=== PATIENT | female | born 1935 | race Two or more races ===

== ENCOUNTER 2022-03-15 09:13 | Emergency (ER) | payer MEDICARE, MEDICAID ==
[~2022-03-15] VITALS: Ht 147.3 cm; Wt 73.1 kg
[2022-03-15 10:09] LABS: Basophils # (auto) 0.1 10 ^3/uL (0-0.2); Basophils % (auto) 0.7 % (0.0-2.0); Eosinophils # (auto) 0.2 10 ^3/uL (0-0.8); Hematocrit 43.8 % (36.0-46.0); Hemoglobin 14.8 g/dL (12.2-16.2); Lymphocytes # (auto) 2.2 10 ^3/uL (0.4-5.4); Lymphocytes % (auto) 25.4 % (10.0-50.0); Mean Corpuscular Hemoglobin 29.6 pg (28.0-32.0); Mean Corpuscular Hgb Conc. 33.8 g/dL (32.0-36.0); Mean Corpuscular Volume 87.7 fL (80.0-100.0); Monocytes # (auto) 0.5 10 ^3/uL (0-1.3); Neutrophils # (auto) 5.6 10 ^3/uL (1.6-8.6); Neutrophils % (auto) 65.9 % (37.0-80.0); Nucleated Red Blood Cells % 0.1 %; Red Cell Distribution Width 13.4 % (11.8-14.3); White Blood Cell 8.5 10^3/uL (4.4-10.8)
[2022-03-15 10:29] LABS: Albumin 3.8 g/dL (3.4-5.0); Calcium 8.4 mg/dL (8.5-10.1); Potassium 3.1 mmol/L (3.5-5.1)
[2022-03-15 10:32] LABS: BUN/Creatinine Ratio 13.5; Bilirubin, Total 0.7 mg/dL (0.2-1.0); Total Protein 7.2 g/dL (6.4-8.2)
[2022-03-15] MEDS ORDERED: MAGNESIUM SULFATE 1GM/100ML 100 ML IV ONE (13:15)
[2022-03-15] MEDS ORDERED: POTASSIUM EFFERVESENT TAB 25 MEQ PO ONE (13:15)
[2022-03-15 13:24] VITALS: BP 165/74
== END 2022-03-15 14:15 | disposition left against medical advice (07) ==
LOC: ER 09:13
DX: E83.42 Hypomagnesemia (principal); E87.6 Hypokalemia; Z90.49 Acquired absence of other specified parts of digestive tract
CPT/HCPCS: 36415; 80053; 82962; 83735; 84484; 85025; 93005

== ENCOUNTER 2023-01-01 13:01 | Inpatient (IN) | payer MEDICARE, MEDICAID ==
[~2023-01-01] VITALS: Ht 144.8 cm; Wt 73.4 kg
[2023-01-01] VITALS (8 sets, daily range): BP systolic 147–154; BP diastolic 54–76; PULSE 59–66; RESP 16–22; TEMP 97.5–97.9; O2SAT 94–97
[2023-01-01 13:59] LABS: Basophils # (auto) 0.1 10 ^3/uL (0-0.2); Eosinophils # (auto) 0 10 ^3/uL (0-0.8); Hemoglobin 11.4 g/dL (12.2-16.2); Mean Corpuscular Hemoglobin 28.3 pg (28.0-32.0); White Blood Cell 9.4 10^3/uL (4.4-10.8)
[2023-01-01 14:02] LABS: Basophils % (auto) 0.6 % (0.0-2.0); Eosinophils % (auto) 0.2 % (0.0-7.0); Hematocrit 35.4 % (36.0-46.0); Lymphocytes # (auto) 0.8 10 ^3/uL (0.4-5.4); Lymphocytes % (auto) 8.7 % (10.0-50.0); Mean Corpuscular Hgb Conc. 32.3 g/dL (32.0-36.0); Mean Corpuscular Volume 87.7 fL (80.0-100.0); Monocytes # (auto) 0.6 10 ^3/uL (0-1.3); Monocytes % (auto) 6.1 % (0.0-12.0); Neutrophils # (auto) 7.9 10 ^3/uL (1.6-8.6); Neutrophils % (auto) 84.4 % (37.0-80.0); Nucleated Red Blood Cells % 0.1 %; Red Blood Cells 4.04 10^6/uL (4.0-5.20); Red Cell Distribution Width 15.9 % (11.8-14.3)
[2023-01-01 14:11] LABS: INR 1.56 (0.9-1.15); Partial Thromboplastin Time 44.5 SEC (24.5-34.5); Prothrombin Time 15.9 sec (9.3-11.8)
[2023-01-01] MEDS ORDERED: FUROSEMIDE 20 MG/2 ML VIAL IV ONE (14:15)
[2023-01-01 14:49] LABS: Alanine Aminotransferase 125 U/L (7-40); Albumin 4.2 g/dL (3.2-4.8); Alkaline Phosphatase 79 U/L (46-116); Anion Gap 12 (5-15); Aspartate Aminotransferase 122 U/L (13-40); Blood Urea Nitrogen 13 mg/dL (9-23); Carbon Dioxide 22 mmol/L (20-30); Chloride 107 mmol/L (98-107); Glucose 149 mg/dL (74-106); Magnesium 1.6 mg/dL (1.6-2.6); Potassium 3.8 mmol/L (3.5-5.1); Sodium 141 mmol/L (136-145)
[2023-01-01 14:50] LABS: Bilirubin, Total 0.4 mg/dL (0.2-1.0)
[2023-01-01 15:27] LABS: BUN/Creatinine Ratio 16.3 (10.0-20.0)
[2023-01-01 15:32] LABS: Total Protein 4.7 g/dL (5.7-8.2)
[2023-01-01] MEDS ORDERED: IOHEXOL 350 MG/ML 100ML IJ ONE (16:07)
[2023-01-01] MEDS ORDERED: DEXTROSE (50%) 50ML SYRG IV PRN (16:15)
[2023-01-01] MEDS ORDERED: ACETAMINOPHEN 325 MG TAB PO PRN (16:15)
[2023-01-01] MEDS ORDERED: AMIO200T13 PO (16:20)
[2023-01-01] MEDS ORDERED: HYDR-3682 PO (16:20)
[2023-01-01] MEDS ORDERED: AMLO1TAB23 PO (16:20)
[2023-01-01] MEDS ORDERED: HYDR-4297 PO ×2 (16:20→21:12)
[2023-01-01] MEDS ORDERED: SIMV10TA20 PO (16:20)
[2023-01-01] MEDS ORDERED: MET50T PO (16:20)
[2023-01-01] MEDS ORDERED: SERT-206 PO (16:20)
[2023-01-01] MEDS ORDERED: METF-372 PO (16:20)
[2023-01-01] MEDS ORDERED: RIV15T PO (16:20)
[2023-01-01] MEDS ORDERED: LISI20TA56 PO (16:20)
[2023-01-01] MEDS ORDERED: VERA120T89 PO (16:20)
[2023-01-01 17:18] LABS: Triglycerides 104 mg/dL (< 150)
[2023-01-01 17:19] LABS: LDL Cholesterol 30 mg/dL (< 100)
[2023-01-01 17:20] LABS: Cholesterol 91 mg/dL (< 200); HDL Cholesterol 42 mg/dL (40-59)
[2023-01-01] MEDS: IPRATROPIUM BROM 0.5 MG/2.5ML INH SOL NEB SCH ×2 (20:19→22:37)
[2023-01-01] MEDS: ALBUTEROL MEDNEB 2.5 mg/3ml NEB NEB SCH ×2 (20:19→22:37)
[2023-01-01] MEDS ORDERED: METF-371 PO (21:12)
[2023-01-01] MEDS ORDERED: PANT40T PO (21:12)
[2023-01-01] MEDS ORDERED: VERAPAMIL HCL 40 MG TAB PO SCH (22:00)
[2023-01-01] MEDS ORDERED: METOPROLOL TARTRATE 50 MG TAB PO SCH (22:00)
[2023-01-01] MEDS: hydrALAZINE HCL 25 MG TAB PO SCH (22:00)
[2023-01-01] MEDS ORDERED: VERAPAMIL HCL 120 mg ER tab PO SCH (22:00)
[2023-01-01] MEDS: ATORVASTATIN 20 MG TAB PO SCH (22:49)
[2023-01-01] MEDS: LISINOPRIL 20 MG TAB PO SCH (22:50)
[2023-01-01] MEDS: ACCU-CHEK COMFORT CURVE STRIP VI SCH (22:54)
[2023-01-01] MEDS: InsuLIN REG 1unit/0.01ml Soln (100units/ml) SC SCH (22:54)
[2023-01-01 23:20] LABS: Rapid Influenza A Negative (Negative); Rapid Influenza B Negative (Negative)
[2023-01-01 23:21] LABS: COVID19 ANTIGEN SOFIA FIA NEGATIVE (NEGATIVE)
[2023-01-02] VITALS (17 sets, daily range): BP systolic 136–155; BP diastolic 55–69; PULSE 60–72; RESP 16–18; TEMP 97.5–98.9; O2SAT 94–99
[2023-01-02] MEDS: ALBUTEROL MEDNEB 2.5 mg/3ml NEB NEB SCH ×4 (02:23→14:09)
[2023-01-02] MEDS: IPRATROPIUM BROM 0.5 MG/2.5ML INH SOL NEB SCH ×6 (02:23→21:41)
[2023-01-02 05:40] LABS: Alanine Aminotransferase 109 U/L (7-40); Albumin 3.7 g/dL (3.2-4.8); Alkaline Phosphatase 66 U/L (46-116); Anion Gap 9 (5-15); Aspartate Aminotransferase 98 U/L (13-40); BUN/Creatinine Ratio 9.5 (10.0-20.0); Bilirubin, Total 0.5 mg/dL (0.2-1.0); Blood Urea Nitrogen 9 mg/dL (9-23); Calcium 8.7 mg/dL (8.5-10.1); Carbon Dioxide 26 mmol/L (20-30); Chloride 108 mmol/L (98-107); Glucose 92 mg/dL (74-106); Potassium 2.9 mmol/L (3.5-5.1); Sodium 143 mmol/L (136-145); Total Protein 5.9 g/dL (5.7-8.2)
[2023-01-02 05:53] LABS: Basophils # (auto) 0.1 10 ^3/uL (0-0.2); Basophils % (auto) 0.6 % (0.0-2.0); Eosinophils # (auto) 0.1 10 ^3/uL (0-0.8); Eosinophils % (auto) 0.9 % (0.0-7.0); Hematocrit 32.9 % (36.0-46.0); Hemoglobin 10.7 g/dL (12.2-16.2); Lymphocytes # (auto) 1.2 10 ^3/uL (0.4-5.4); Lymphocytes % (auto) 13.7 % (10.0-50.0); Mean Corpuscular Hemoglobin 28.5 pg (28.0-32.0); Mean Corpuscular Hgb Conc. 32.6 g/dL (32.0-36.0); Mean Corpuscular Volume 87.6 fL (80.0-100.0); Monocytes # (auto) 0.7 10 ^3/uL (0-1.3); Monocytes % (auto) 7.8 % (0.0-12.0); Neutrophils # (auto) 6.6 10 ^3/uL (1.6-8.6); Nucleated Red Blood Cells % 0.1 %; Red Blood Cells 3.76 10^6/uL (4.0-5.20); White Blood Cell 8.6 10^3/uL (4.4-10.8)
[2023-01-02] MEDS: hydrALAZINE HCL 25 MG TAB PO SCH ×3 (05:59→22:00)
[2023-01-02] MEDS: ACCU-CHEK COMFORT CURVE STRIP VI SCH ×4 (05:59→23:22)
[2023-01-02] MEDS: InsuLIN REG 1unit/0.01ml Soln (100units/ml) SC SCH ×4 (06:02→22:00)
[2023-01-02] MEDS ORDERED: ENOXAPARIN SOD 40 MG/0.4 ML SYRINGE SC SCH (10:00)
[2023-01-02] MEDS ORDERED: PIPERACILLIN-TAZOB 3.375GM 100 ML IV ONE (10:00)
[2023-01-02] MEDS ORDERED: VANCOMYCIN PER PHARMACY 0 MG IV SCH (10:00)
[2023-01-02] MEDS ORDERED: FUROSEMIDE 20 MG/2 ML VIAL IV SCH (10:00)
[2023-01-02] MEDS ORDERED: RIVAROXABAN 15 MG TAB PO SCH (10:00)
[2023-01-02] MEDS ORDERED: AMIODARONE HCL 200 MG TAB PO SCH (10:00)
[2023-01-02 10:07] LABS: CRP High Sensitivity 1.13 mg/dL (<1.0)
[2023-01-02] MEDS: LISINOPRIL 20 MG TAB PO SCH ×2 (10:19→23:19)
[2023-01-02] MEDS: amLODIPine BESYLATE 5 MG TAB PO SCH (10:20)
[2023-01-02] MEDS: SERTRALINE HCL 50 MG TAB PO SCH (10:20)
[2023-01-02 10:30] LABS: Magnesium 1.6 mg/dL (1.6-2.6)
[2023-01-02 10:56] LABS: Free T3 2.72 pg/mL (2.3-4.2)
[2023-01-02 10:58] LABS: Free T4 (Free Thyroxine) 0.97 ng/dL (0.89-1.76)
[2023-01-02] MEDS ORDERED: VANCOMYCIN 1GM/250ML 250 ML IV ONE (11:00)
[2023-01-02 11:18] LABS: INR 1.14 (0.9-1.15); Prothrombin Time 11.9 sec (9.3-11.8)
[2023-01-02] MEDS: POTASSIUM CHL 20MEQ/100ML 100 ML IV SCH ×2 (11:30→12:36)
[2023-01-02 17:44] LABS: Amphetamine Screen, Urine Neg (NEGATIVE); Barbiturate Scree,Urine Neg (NEGATIVE); Benzodiazephine Screen, Urine Neg (NEGATIVE); Cannabinoid Screen, Urine Neg (NEGATIVE); Cocaine Screen, Urine Neg (NEGATIVE); Opiate Scree,Urine Neg (NEGATIVE); Phencyclidine Screen, Urine Neg (NEGATIVE)
[2023-01-02] MEDS: PIPERACILLIN-TAZOB 3.375GM 100 ML IV SCH (18:00)
[2023-01-02] MEDS: FUROSEMIDE 20 MG/2 ML VIAL IV SCH (18:34)
[2023-01-02 19:10] LABS: Urine Bacteria NONE SEEN /hpf (None Seen); Urine Blood Negative /uL (Negative); Urine Clarity Clear (Clear); Urine Hyaline Cast MANY /lpf (0 - 2); Urine Protein, UAD Negative (Negative); Urine Specific Gravity 1.015 (1.001-1.035); Urine Urobilinogen Normal (Negative); Urine WBC 1 /hpf (0 - 5)
[2023-01-02 19:11] LABS: Urine Color STRAW (Yellow)
[2023-01-02] MEDS: ENOXAPARIN SOD 80 MG/0.8ML SYRINGE SC SCH (22:00)
[2023-01-02] MEDS: ATORVASTATIN 20 MG TAB PO SCH (23:19)
[2023-01-03] VITALS (20 sets, daily range): BP systolic 119–159; BP diastolic 55–69; PULSE 68–93; RESP 16–20; TEMP 98.6–99.8; O2SAT 91–100
[2023-01-03] MEDS: PIPERACILLIN-TAZOB 3.375GM 100 ML IV SCH ×3 (01:46→17:41)
[2023-01-03] MEDS: IPRATROPIUM BROM 0.5 MG/2.5ML INH SOL NEB SCH ×6 (02:21→22:19)
[2023-01-03] MEDS: ACCU-CHEK COMFORT CURVE STRIP VI SCH ×4 (05:30→23:28)
[2023-01-03] MEDS: FUROSEMIDE 20 MG/2 ML VIAL IV SCH (05:53)
[2023-01-03] MEDS: EMPAGLIFLOZIN 10 MG TAB PO SCH (05:53)
[2023-01-03] MEDS: InsuLIN REG 1unit/0.01ml Soln (100units/ml) SC SCH ×4 (05:53→22:00)
[2023-01-03 06:24] LABS: Basophils # (auto) 0.1 10 ^3/uL (0-0.2); Basophils % (auto) 0.9 % (0.0-2.0); Eosinophils # (auto) 0.2 10 ^3/uL (0-0.8); Eosinophils % (auto) 2.1 % (0.0-7.0); Hematocrit 34.1 % (36.0-46.0); Hemoglobin 11.3 g/dL (12.2-16.2); Lymphocytes # (auto) 1.3 10 ^3/uL (0.4-5.4); Lymphocytes % (auto) 17.6 % (10.0-50.0); Mean Corpuscular Hemoglobin 28.3 pg (28.0-32.0); Mean Corpuscular Volume 85.9 fL (80.0-100.0); Monocytes # (auto) 0.7 10 ^3/uL (0-1.3); Monocytes % (auto) 8.5 % (0.0-12.0); Neutrophils # (auto) 5.4 10 ^3/uL (1.6-8.6); Neutrophils % (auto) 70.9 % (37.0-80.0); Red Blood Cells 3.97 10^6/uL (4.0-5.20); Red Cell Distribution Width 15.8 % (11.8-14.3); White Blood Cell 7.7 10^3/uL (4.4-10.8)
[2023-01-03 06:48] LABS: Alanine Aminotransferase 106 U/L (7-40); Albumin 3.8 g/dL (3.2-4.8); Alkaline Phosphatase 72 U/L (46-116); Anion Gap 9 (5-15); Aspartate Aminotransferase 91 U/L (13-40); BUN/Creatinine Ratio 9.8 (10.0-20.0); Bilirubin, Total 0.7 mg/dL (0.2-1.0); Blood Urea Nitrogen 10 mg/dL (9-23); Calcium 8.9 mg/dL (8.5-10.1); Carbon Dioxide 31 mmol/L (20-30); Chloride 102 mmol/L (98-107); Glucose 108 mg/dL (74-106); Potassium 3.2 mmol/L (3.5-5.1); Sodium 142 mmol/L (136-145); Total Protein 6.2 g/dL (5.7-8.2)
[2023-01-03] MEDS ORDERED: POTASSIUM EFFERVESENT TAB 25 MEQ PO ONE (07:15)
[2023-01-03] MEDS ORDERED: LEVOTHYROXINE SODIUM 25 MCG TAB PO ONE (09:00)
[2023-01-03] MEDS ORDERED: POTASSIUM CHLORIDE 40 MEQ, LIDOCAINE 1% (LOCAL ANESTH.) 4 ML in SODIUM CHL 0.9% 250 ML IV ONE (09:30)
[2023-01-03] MEDS: LISINOPRIL 20 MG TAB PO SCH ×2 (09:36→23:06)
[2023-01-03] MEDS: ENOXAPARIN SOD 80 MG/0.8ML SYRINGE SC SCH ×2 (09:36→23:07)
[2023-01-03] MEDS: amLODIPine BESYLATE 5 MG TAB PO SCH (09:36)
[2023-01-03] MEDS: SERTRALINE HCL 50 MG TAB PO SCH (09:36)
[2023-01-03] MEDS: MAGNESIUM SULFATE 1GM/100ML 100 ML IV SCH ×3 (11:00→23:04)
[2023-01-03] MEDS ORDERED: POTASSIUM CHLORIDE 60 MEQ, LIDOCAINE 1% (LOCAL ANESTH.) 6 ML in SODIUM CHL 0.9% 500 ML IV ONE (11:15)
[2023-01-03] MEDS: hydrALAZINE HCL 25 MG TAB PO SCH ×2 (11:47→23:05)
[2023-01-03] MEDS ORDERED: POTASSIUM CHLORIDE 20 MEQ, LIDOCAINE 1% (LOCAL ANESTH.) 2 ML in SODIUM CHL 0.9% 100 ML IV ONE (13:30)
[2023-01-03] MEDS: ATORVASTATIN 20 MG TAB PO SCH (23:05)
[2023-01-04] VITALS (18 sets, daily range): BP systolic 117–155; BP diastolic 52–71; PULSE 64–88; RESP 16–22; TEMP 97.8–99; O2SAT 93–100
[2023-01-04] MEDS: MAGNESIUM SULFATE 1GM/100ML 100 ML IV SCH (00:49)
[2023-01-04] MEDS: IPRATROPIUM BROM 0.5 MG/2.5ML INH SOL NEB SCH ×6 (02:04→21:49)
[2023-01-04 05:46] LABS: Anion Gap 8 (5-15); Calcium 8.3 mg/dL (8.7-10.4); Carbon Dioxide 30 mmol/L (20-30); Chloride 101 mmol/L (98-107); Potassium 3.3 mmol/L (3.5-5.1); Sodium 139 mmol/L (136-145)
[2023-01-04 05:51] LABS: Glucose 107 mg/dL (74-106)
[2023-01-04 05:52] LABS: BUN/Creatinine Ratio 9.4 (10.0-20.0); Blood Urea Nitrogen 10 mg/dL (9-23); Magnesium 2.3 mg/dL (1.6-2.6)
[2023-01-04] MEDS ORDERED: PIPERACILLIN-TAZOB 3.375GM 100 ML IV SCH (06:00)
[2023-01-04] MEDS: EMPAGLIFLOZIN 10 MG TAB PO SCH (06:15)
[2023-01-04] MEDS: LEVOTHYROXINE SODIUM 25 MCG TAB PO SCH (06:15)
[2023-01-04] MEDS: InsuLIN REG 1unit/0.01ml Soln (100units/ml) SC SCH ×4 (06:16→22:00)
[2023-01-04] MEDS: ACCU-CHEK COMFORT CURVE STRIP VI SCH ×4 (06:16→22:21)
[2023-01-04] MEDS: ALBUTEROL MEDNEB 2.5 mg/3ml NEB NEB PRN ×2 (06:21→09:47)
[2023-01-04 08:39] LABS: Alanine Aminotransferase 141 U/L (7-40); Albumin 3.9 g/dL (3.2-4.8); Alkaline Phosphatase 65 U/L (46-116); Anion Gap 7 (5-15); Aspartate Aminotransferase 161 U/L (13-40); BUN/Creatinine Ratio 9.1 (10.0-20.0); Blood Urea Nitrogen 9 mg/dL (9-23); Calcium 8.8 mg/dL (8.5-10.1); Carbon Dioxide 30 mmol/L (20-30); Chloride 102 mmol/L (98-107); Glucose 120 mg/dL (74-106); Potassium 3.2 mmol/L (3.5-5.1); Sodium 139 mmol/L (136-145)
[2023-01-04 08:40] LABS: Bilirubin, Total 0.5 mg/dL (0.2-1.0); Total Protein 6.3 g/dL (5.7-8.2)
[2023-01-04 08:45] LABS: Basophils # (auto) 0.1 10 ^3/uL (0-0.2); Basophils % (auto) 1.1 % (0.0-2.0); Eosinophils # (auto) 0.2 10 ^3/uL (0-0.8); Eosinophils % (auto) 2.9 % (0.0-7.0); Hemoglobin 11.6 g/dL (12.2-16.2); Lymphocytes % (auto) 16.6 % (10.0-50.0); Mean Corpuscular Hemoglobin 27.6 pg (28.0-32.0); Mean Corpuscular Hgb Conc. 32.2 g/dL (32.0-36.0); Mean Corpuscular Volume 85.8 fL (80.0-100.0); Monocytes # (auto) 0.7 10 ^3/uL (0-1.3); Monocytes % (auto) 10.9 % (0.0-12.0); Neutrophils # (auto) 4.3 10 ^3/uL (1.6-8.6); Neutrophils % (auto) 68.5 % (37.0-80.0); Red Blood Cells 4.19 10^6/uL (4.0-5.20); Red Cell Distribution Width 15.8 % (11.8-14.3); White Blood Cell 6.2 10^3/uL (4.4-10.8)
[2023-01-04] MEDS: amLODIPine BESYLATE 5 MG TAB PO SCH (09:04)
[2023-01-04] MEDS: LISINOPRIL 20 MG TAB PO SCH ×2 (09:04→22:12)
[2023-01-04] MEDS: SERTRALINE HCL 50 MG TAB PO SCH (09:05)
[2023-01-04] MEDS: hydrALAZINE HCL 25 MG TAB PO SCH ×2 (09:05→22:11)
[2023-01-04] MEDS: AMIODARONE HCL 200 MG TAB PO SCH (09:05)
[2023-01-04] MEDS: ENOXAPARIN SOD 80 MG/0.8ML SYRINGE SC SCH (09:06)
[2023-01-04] MEDS ORDERED: FUROSEMIDE 20 MG/2 ML VIAL IV SCH (10:00)
[2023-01-04] MEDS ORDERED: POTASSIUM CHLORIDE 20 MEQ, LIDOCAINE 1% (LOCAL ANESTH.) 2 ML in SODIUM CHL 0.9% 100 ML IV ONE (12:30)
[2023-01-04] MEDS ORDERED: POTASSIUM CHL 20MEQ/100ML 0 ML IV ONE (16:41)
[2023-01-04] MEDS ORDERED: RIVAROXABAN 15 MG TAB PO SCH (18:00)
[2023-01-04] MEDS: ATORVASTATIN 20 MG TAB PO SCH (22:11)
[2023-01-05] VITALS (13 sets, daily range): BP systolic 120–148; BP diastolic 62–75; PULSE 61–96; RESP 17–20; TEMP 36.6; O2SAT 93–99
[2023-01-05] MEDS: IPRATROPIUM BROM 0.5 MG/2.5ML INH SOL NEB SCH ×4 (02:00→14:39)
[2023-01-05 04:59] LABS: Basophils # (auto) 0.1 10 ^3/uL (0-0.2); Basophils % (auto) 1.2 % (0.0-2.0); Eosinophils # (auto) 0.3 10 ^3/uL (0-0.8); Eosinophils % (auto) 4.6 % (0.0-7.0); Hematocrit 36.6 % (36.0-46.0); Hemoglobin 11.9 g/dL (12.2-16.2); Lymphocytes # (auto) 1.5 10 ^3/uL (0.4-5.4); Lymphocytes % (auto) 24.2 % (10.0-50.0); Mean Corpuscular Hemoglobin 27.8 pg (28.0-32.0); Mean Corpuscular Hgb Conc. 32.4 g/dL (32.0-36.0); Mean Corpuscular Volume 85.8 fL (80.0-100.0); Monocytes # (auto) 0.8 10 ^3/uL (0-1.3); Monocytes % (auto) 12.7 % (0.0-12.0); Neutrophils # (auto) 3.6 10 ^3/uL (1.6-8.6); Neutrophils % (auto) 57.3 % (37.0-80.0); Nucleated Red Blood Cells % 0.1 %; Red Blood Cells 4.26 10^6/uL (4.0-5.20); Red Cell Distribution Width 16.1 % (11.8-14.3); White Blood Cell 6.3 10^3/uL (4.4-10.8)
[2023-01-05 05:18] LABS: Alanine Aminotransferase 118 U/L (7-40); Alkaline Phosphatase 77 U/L (46-116); Anion Gap 9 (5-15); Aspartate Aminotransferase 136 U/L (13-40); BUN/Creatinine Ratio 9.1 (10.0-20.0); Blood Urea Nitrogen 9 mg/dL (9-23); Calcium 8.5 mg/dL (8.7-10.4); Carbon Dioxide 27 mmol/L (20-30); Chloride 102 mmol/L (98-107); Glucose 109 mg/dL (74-106); Potassium 3.2 mmol/L (3.5-5.1); Sodium 138 mmol/L (136-145)
[2023-01-05 05:19] LABS: Bilirubin, Total 0.5 mg/dL (0.2-1.0); Total Protein 6.5 g/dL (5.7-8.2)
[2023-01-05] MEDS: EMPAGLIFLOZIN 10 MG TAB PO SCH (06:13)
[2023-01-05] MEDS: LEVOTHYROXINE SODIUM 25 MCG TAB PO SCH (06:13)
[2023-01-05] MEDS: ACCU-CHEK COMFORT CURVE STRIP VI SCH ×3 (06:13→17:00)
[2023-01-05] MEDS: InsuLIN REG 1unit/0.01ml Soln (100units/ml) SC SCH ×3 (06:13→17:00)
[2023-01-05] MEDS ORDERED: POTASSIUM CHL 10 Meq TABLET PO SCH (10:00)
[2023-01-05] MEDS ORDERED: POTASSIUM CHL 20 Meq TABLET PO ONE (11:00)
[2023-01-05] MEDS: amLODIPine BESYLATE 5 MG TAB PO SCH (11:14)
[2023-01-05] MEDS: LISINOPRIL 20 MG TAB PO SCH (11:14)
[2023-01-05] MEDS ORDERED: POTASSIUM CHL 20MEQ/100ML 100 ML IV SCH (11:15)
[2023-01-05] MEDS: SERTRALINE HCL 50 MG TAB PO SCH (11:15)
[2023-01-05] MEDS: hydrALAZINE HCL 25 MG TAB PO SCH (11:15)
[2023-01-05] MEDS: AMIODARONE HCL 200 MG TAB PO SCH (11:16)
[2023-01-05] MEDS ORDERED: FUR20T PO (14:37)
[2023-01-05] MEDS ORDERED: POTA-211 PO (14:37)
[2023-01-05] MEDS ORDERED: LEV25T PO (14:37)
[2023-01-05] MEDS ORDERED: EMPA1TAB PO (14:37)
[2023-01-06] MEDS ORDERED: FUROSEMIDE 20 MG TAB PO SCH (10:00)
== END 2023-01-05 17:10 | disposition home or self-care (01) | DRG 193 ==
LOC: ER 13:01 → OVERFLOW 16:11 → TELE-CENTR 20:52
PROVIDERS: ADMIT Internal Medicine; ATTEND Internal Medicine
DX: J18.9 Pneumonia, unspecified organism (principal); I50.33 Acute on chronic diastolic (congestive) heart failure; J96.01 Acute respiratory failure with hypoxia; J90 Pleural effusion, not elsewhere classified; D68.59 Other primary thrombophilia; I11.0 Hypertensive heart disease with heart failure; E11.9 Type 2 diabetes mellitus without complications; E66.01 Morbid (severe) obesity due to excess calories; E78.5 Hyperlipidemia, unspecified; E03.9 Hypothyroidism, unspecified; I25.10 Atherosclerotic heart disease of native coronary artery without angina pectoris; I48.0 Paroxysmal atrial fibrillation; I27.20 Pulmonary hypertension, unspecified; Z20.822 Contact with and (suspected) exposure to COVID-19; K76.9 Liver disease, unspecified; Z79.01 Long term (current) use of anticoagulants; Z79.84 Long term (current) use of oral hypoglycemic drugs; Z90.49 Acquired absence of other specified parts of digestive tract
CPT/HCPCS: 36415; 71045; 71275; 76705; 80048; 80053; 80061; 80307; 81001; 82306; 82607; 82962; 83036; 83735; 83880; 84132; 84439; 84443; 84481; 84484; 85025; 85379; 85610; 85730; 86141; 87040; 87086; 87426; 87804; 93005; 93306; 93970; 94640; 96365; 96375; 97110; 97116; 97163; 97530; G0378; J1815; J2001; J2543; J3480